=== PATIENT | male | born 1960 ===

== ENCOUNTER → 2020-12-21 13:50 | Outpatient (CLI) | payer OTHER | END | disposition home or self-care (01) | LOC: LAB 13:50 | PROVIDERS: ATTEND Emergency Medicine Pediatric Emergency Medicine | DX: Z03.818 Encounter for observation for suspected exposure to other biological agents ruled out (principal) ==

== ENCOUNTER 2020-12-28 09:27 | Outpatient (CLI) | payer OTHER | END 2020-12-28 10:00 | disposition home or self-care (01) | LOC: LAB 09:27 | DX: U07.1 COVID-19 (principal) ==

== ENCOUNTER 2020-12-29 08:23 | Outpatient (CLI) | payer OTHER | END 2020-12-29 15:00 | disposition home or self-care (01) | LOC: LAB 08:23 | DX: Z03.818 Encounter for observation for suspected exposure to other biological agents ruled out (principal) ==

== ENCOUNTER → 2021-04-26 06:50 | Outpatient (CLI) | payer OTHER | END | disposition home or self-care (01) | LOC: LAB 06:50 | PROVIDERS: ATTEND Emergency Medicine Pediatric Emergency Medicine | DX: Z03.818 Encounter for observation for suspected exposure to other biological agents ruled out (principal) ==

== ENCOUNTER → 2021-05-02 06:53 | Outpatient (CLI) | payer OTHER | END | disposition home or self-care (01) | LOC: LAB 06:53 | PROVIDERS: ATTEND Emergency Medicine Pediatric Emergency Medicine | DX: Z03.818 Encounter for observation for suspected exposure to other biological agents ruled out (principal) ==